=== PATIENT | male | born 1935 | race Caucasian/White ===

== ENCOUNTER 2024-04-02 14:29 | Emergency (ER) | payer OTHER, MEDICAID ==
[~2024-04-02] VITALS: Ht 165.1 cm; Wt 55.8 kg
[~2024-04-02 14:29] MED LIST: ALENDRONATE SOD10 MG PO; ASPIRIN ADULT L81 M2 PO; CARBIDOPA-LEVO1 EAC1 PO; COLACE100 MG PO; DULCOLAX10 M1 R; HYDROCODONE-AC1 EAC1 PO; Ipratropium Brom3 ML INH; LEVO-T50 MCG PO; MELATONIN5 M1 PO; MIDODRINE HCL10 MG PO; MILK OF MA400 MG/53 PO; MIRALAX17 GM PO; MIRTAZAPINE15 M2 PO; RIVASTIGMINE1 EACH T; TRAZODONE50 MG PO; TYLENOL325 M1 PO
[2024-04-02] MEDS ORDERED: Tdap Vaccine 0.5 ML SYR (Adult Vaccine) IM ONE (17:05)
[2024-04-04] MEDS ORDERED: NOVOLOG FL100 UNIT/2 SC (03:11)
[2024-04-06] MEDS ORDERED: SINEMET 25-1001 EACH PO (13:06)
[2024-04-09] MEDS ORDERED: LEVOFLOXACIN750 M2 PO (11:32)
== END 2024-04-02 16:59 | disposition home or self-care (01) ==
LOC: ED 14:29
DX: S51.011A Laceration without foreign body of right elbow, initial encounter (principal); S61.411A Laceration without foreign body of right hand, initial encounter; F03.90 Unspecified dementia, unspecified severity, without behavioral disturbance, psychotic disturbance, mood disturbance, and anxiety; E03.9 Hypothyroidism, unspecified; N18.9 Chronic kidney disease, unspecified; W01.0XXA Fall on same level from slipping, tripping and stumbling without subsequent striking against object, initial encounter; Y93.89 Activity, other specified; Y92.129 Unspecified place in nursing home as the place of occurrence of the external cause; Y99.8 Other external cause status